=== PATIENT | male | born 1985 | race Two or more races ===

== ENCOUNTER 2024-11-21 00:05 | Emergency (ER) | payer SELFPAY ==
[2024-11-21] VITALS (35 sets, daily range): BP systolic 158–219; BP diastolic 113–147; PULSE 84–110; RESP 10–20; TEMP 36.4–36.8; O2SAT 99–100
--- NOTE | ~2024-11-21 | XR_ITS ---
EXAMINATION: XR chest 1V 11/21/2024 00:52 INDICATION: Uncontrolled hypertension PROCEDURE: AP view of the chest COMPARISON: No prior studies for comparison. FINDINGS: The lungs are clear. The cardiomediastinal silhouette is within normal limits. There are no pleural effusions. There is no pneumothorax suspected. IMPRESSION: 1: NO ACUTE CARDIOPULMONARY DISEASE. Reviewed, dictated and finalized at location O.
--- NOTE | ~2024-11-21 | CT_ITS ---
EXAMINATION: CTA BRAIN/CAROTID DATE: 11/21/2024 02:37 INDICATION: Olson's palsy. Elevated blood pressure. TECHNIQUE: Computed tomographic angiography (CTA) of the head and neck was performed with 100 mL Omnipaque-350 intravenous contrast. Multiplanar reconstructions and maximum intensity projection 3D-reconstructions of the carotid arteries and of the intracranial arteries were created by the technologist on a separate workstation. Automated exposure control and iterative reconstruction technique were employed.The dose-length product was 1241.23 mGy-cm. COMPARISON: None. FINDINGS: Intracranial arteries Vertebral arteries are codominant. There is no hemodynamically significant stenosis in the vertebral, basilar and internal carotid arteries. Both A1 and P1 segments are patent. There a patent anterior communicating artery as well as patent bilateral posterior communicating arteries, diminutive on the left. There are no aneurysms identified. Cerebral arterial arborization appears symmetric. Carotid arteries: The aortic arch and the great vessels arising from the arch are normal in caliber with no dissection or hemodynamically significant stenosis. There is no evident atherosclerotic plaque with 0% stenosis of the right and left carotid bulbs relative to normal distal artery lumen diameter (NASCET criteria). Mild emphysema in the upper lungs. Dependent predominant groundglass opacities likely related to expiratory phase of imaging as indicated by the concave margin of the posterior trachea. Mildly prominent likely reactive prevascular lymph node in the superior mediastinum which measures up to 9 mm in maximal short axis diameter. Cervical soft tissues are unremarkable. Likely positional mild reversal of the normal cervical lordosis. IMPRESSION: 1. No evident atherosclerotic plaque with 0% stenosis of the right and left carotid bulbs relative to normal distal artery lumen diameter (NASCET criteria). 2. Unremarkable cerebral CT angiogram with no hematoma significant stenosis, aneurysm or thrombosis. Reviewed, dictated and finalized at location A. IMPRESSION: 1. No evident atherosclerotic plaque with 0% stenosis of the right and left car otid bulbs relative to normal distal artery lumen diameter (NASCET criteria). 2. Unremarkable cerebral CT angiogram with no hematoma significant stenosis, an eurysm or thrombosis.
--- NOTE | ~2024-11-21 | CT_ITS ---
EXAMINATION: CT brain wo con DATE: 11/21/2024 00:48 INDICATION: Hypertension. Olson's palsy. TECHNIQUE: Computed tomography (CT) of the head was performed without intravenous contrast. Sagittal and coronal reconstructions were performed. The mA was adjusted according to patient size. Iterative reconstruction technique was employed. The dose-length product was 681.00 mGy-cm. COMPARISON: None FINDINGS: No acute intracranial hemorrhage, acute infarction or abnormal extra axial fluid collection. Ventricles are normal and symmetric. No mass/mass effect. The orbits and mastoid air cells are normal. Mucosal thickening the bilateral ethmoid, maxillary and right sphenoid sinuses. IMPRESSION: 1. Normal brain. No acute intracranial process. Reviewed, dictated and finalized at location A.
--- NOTE | 2024-11-21 00:11 | ED_ITS ---
HPI - Weakness General Chief complaint: Weakness <Case Bolton MD - Last Filed: 11/21/24 19:26> Stated complaint: R side weakness <Case Bolton MD - Last Filed: 11/21/24 19:26> Time Seen by Provider: 11/21/24 00:11 <Case Bolton MD - Last Filed: 11/21/24 19:26> Source: patient <Case Bolton MD - Last Filed: 11/21/24 19:26> Mode of arrival: ambulatory <Case Bolton MD - Last Filed: 11/21/24 19:26> Limitations: no limitations <Case Bolton MD - Last Filed: 11/21/24 19:26> History of Present Illness HPI Narrative: 38 YEARS OLD MALE CAME TO THE ED BY PRIVATE CAR COMPLAINING OF RIGHT FACE FACIAL WEAKNESS STARTED LAST NIGHT, HAS BEEN STEADY SINCE. HE DENIES ANY TINGLING NUMBNESS OR WEAKNESS ANYWHERE ELSE. PATIENT DENIES ANY FEVER, CHILLS, NAUSEA, VOMITING, HEADACHE, VISION DISORDER. PATIENT IS NOT ON ANY MEDICATIONS, HE SMOKES CIGARETTES, DRINK ALCOHOL, USES MARIJUANA DAILY PATIENT DOES NOT HAVE FAMILY PHYSICIAN <Case Bolton MD - Last Filed: 11/21/24 19:26> Related Data Allergies/Adverse reactions: Allergies Allergy/AdvReac Type Severity Reaction Status Date / Time No Known Allergies Allergy Verified 11/21/24 00:07 <Case Bolton MD - Last Filed: 11/21/24 19:26> Review of Systems 2 Review of Systems: All systems reviewed & are unremarkable except as noted in HPI and below <Case Bolton MD - Last Filed: 11/21/24 19:26> Exam 2 Narrative: GENERAL APPEARANCE: WELL-DEVELOPED, WELL-NOURISHED SKIN: NORMAL COLOR HEAD: NORMOCEPHALIC, NONTRAUMATIC EYES: CLEAR CONJUNCTIVA ENT: OROPHARYNX NORMAL, EARS NORMAL, NOSE NORMAL NECK: SUPPLE, NONTENDER CHEST AND RESPIRATORY: AIRWAY PATENT, NO RESPIRATORY DISTRESS, NO ACCESSORY MUSCLE USE HEART: REGULAR RATE/RHYTHM ABDOMEN: SOFT, NONTENDER, NO ORGANOMEGALY, QUIET BOWEL SOUNDS VASCULAR: NORMAL PERIPHERAL PULSES, NORMAL CAPILLARY REFILL. MUSCULOSKELETAL: NORMAL RANGE OF MOTION, NONTENDER BACK NEUROLOGIC: ALERT AND ORIENTED ?3, INABILITY TO WRINKLE RIGHT EYEBROW, DROOPING IV LEAD INABILITY TO CLOSE RIGHT EYE, INABILITY TO POOP OF CHEEK ON THE RIGHT SIDE, DROOPING CORNER OF MOUTH ON THE RIGHT SIDE <Case Bolton MD - Last Filed: 11/21/24 19:26> Course Vital Signs Vital signs: Vital Signs Pulse Oximetry 100 11/21/24 00:12 Temperature 36.4 C 11/21/24 03:43 Pulse Rate 87 11/21/24 03:43 Respiratory Rate 16 11/21/24 03:43 Blood Pressure 176/132 H 11/21/24 03:43 Pulse Oximetry 100 11/21/24 03:43 Oxygen Delivery Room Air 11/21/24 00:13 <Case Bolton MD - Last Filed: 11/21/24 19:26> Vital Signs Pulse Oximetry 100 11/21/24 00:12 Temperature 36.4 C 11/21/24 03:43 Pulse Rate 87 11/21/24 03:43 Respiratory Rate 16 11/21/24 03:43 Blood Pressure 176/132 H 11/21/24 03:43 Pulse Oximetry 100 11/21/24 03:43 Oxygen Delivery Room Air 11/21/24 00:13 <aRo Connors MD - Last Filed: 11/21/24 03:35> MDM - Weakness MDM Narrative Medical decision making narrative: PATIENT CAME WITH RIGHT FACIAL WEAKNESS STARTED YESTERDAY NIGHT VITAL SIGNS SHOWING BLOOD PRESSURE 204/145, HEART RATE 109 OTHERWISE WITHIN NORMAL LIMIT PHYSICAL EXAMINATION CONSISTENT WITH OLSON'S PALSY RIGHT FACE DIFFERENTIAL DIAGNOSIS: IDIOPATHIC, SECONDARY TO VIRAL INFECTION, BACTERIAL INFECTION, TRAUMA, AUTOIMMUNE DISEASE, DIABETES, HYPERTENSION MOST CASES OF OLSON'S PALSIES EXACT CAUSE OF OLSON'S PALSY REMAINS unKNOWN PATIENT CARE TURNED OVER TO DR. CONNORS AT SHIFT CHANGE, AWAITING LABS, IMAGING, DISPOSITION. PATIENT BEEN RESTING QUIETLY IN THE EMERGENCY ROOM WITHOUT ANY ISSUES OR PROBLEMS. CTA showed no acute abnormality Plan was to admit the patient in discussion with the patient the patient states she does not want to stay in the hospital he was recommended to the patient that he stay in the patient expressed understanding this and still did not want stay in the hospital patient was started on steroids will be started on lisinopril and will be referred to primary care. The patient was instructed return precautions and recommended that he stay in the hospital <Case Bolton MD - Last Filed: 11/21/24 19:26> PATIENT CAME WITH RIGHT FACIAL WEAKNESS STARTED YESTERDAY NIGHT VITAL SIGNS SHOWING BLOOD PRESSURE 204/145, HEART RATE 109 OTHERWISE WITHIN NORMAL LIMIT PHYSICAL EXAMINATION CONSISTENT WITH OLSON'S PALSY RIGHT FACE DIFFERENTIAL DIAGNOSIS: IDIOPATHIC, SECONDARY TO VIRAL INFECTION, BACTERIAL INFECTION, TRAUMA, AUTOIMMUNE DISEASE, DIABETES, HYPERTENSION MOST CASES OF OLSON'S PALSIES EXACT CAUSE OF OLSON'S PALSY REMAINS ON KNOWN PATIENT CARE TURNED OVER TO DR. CONNORS AT SHIFT CHANGE, AWAITING LABS, IMAGING, DISPOSITION. PATIENT BEEN RESTING QUIETLY IN THE EMERGENCY ROOM WITHOUT ANY ISSUES OR PROBLEMS. CTA showed no acute abnormality Plan was to admit the patient in discussion with the patient the patient states she does not want to stay in the hospital he was recommended to the patient that he stay in the patient expressed understanding this and still did not want stay in the hospital patient was started on steroids will be started on lisinopril and will be referred to primary care. The patient was instructed return precautions and recommended that he stay in the hospital <Rao Connors MD - Last Filed: 11/21/24 03:35> Differential Diagnosis Differential diagnosis: Likely other ( ABOVE) <Case Bolton MD - Last Filed: 11/21/24 19:26> Lab Data Attestation: I reviewed the patient's lab results. <Case Bolton MD - Last Filed: 11/21/24 19:26> Result diagrams: 11/21/24 00:35 11/21/24 00:35 <Case Bolton MD - Last Filed: 11/21/24 19:26> Labs: Lab Results 11/21/24 11/21/24 Range/Units 00:35 01:26 WBC 8.6 (4.5-10.0) K/mm3 RBC 4.61 (4.6-6.20) M/mm3 Hgb 15.5 (14.0-18.0) g/dL Hct 44.2 (42.0-52.0) % MCV 95.9 (80-100) fl MCH 33.6 (26-34) pg MCHC 35.1 (32-36) g/dl RDW 12.9 (11.5-14.5) % Plt Count 192 (150-375) k/mm3 MPV 10.1 (7.4-10.4) fl Immature Gran % (Auto) 0.3 (0-0.5) % Neut % (Auto) 58.4 (45.5-73.1) % Lymph % (Auto) 30.2 (18.3-44.2) % Greene % (Auto) 7.9 (2.6-8.5) % Eos % (Auto) 2.7 (0-4.4) % Baso % (Auto) 0.5 (0.2-1.2) % Lymph # (Auto) 2.59 (0.9-3.2) K/mm3 Greene # (Auto) 0.7 H (0.1-0.6) K/mm3 Eos # (Auto) 0.2 (0-0.3) K/mm3 Baso # (Auto) 0.0 (0.0-0.1) K/mm3 Abs Immat Gran (auto) 0.03 (0.00-0.031) K/mm3 Absolute Neuts (auto) 5.0 (1.3-6.7) K/mm3 Absolute Nucleated RBC 0.000 (0.0-0.012) K/mm3 Nucleated RBC % 0.0 (0.0-0.2) % PT 13.0 (11.1-14.7) Seconds INR 1.0 APTT 29.6 (22.3-36.8) Seconds Sodium 139 (137-145) mmol/L Potassium 3.8 (3.4-5.0) mmol/L Chloride 105 (98-107) mmol/L Carbon Dioxide 26 (22-30) mmol/L Anion Gap 8 (4-12) mmol/L BUN 13 (9-20) mg/dL Creatinine 1.19 (0.7-1.3) mg/dL Estim Creat Clear Calc 84 ml/min Estimated GFR > 60 (59 - ) Glucose 88 (65-110) mg/dL Hemoglobin A1c 5.3 (<5.7) % Calcium 9.1 (8.4-10.2) mg/dL Total Bilirubin 0.4 (0.2-1.3) mg/dL AST 39 (17-59) U/L ALT 43 (6-50) U/L Alkaline Phosphatase 118 (38-126) U/L Total Protein 8.1 (6.3-8.2) g/dL Albumin 4.8 (3.5-5.1) g/dL TSH 2.930 (0.465-4.680) uIU/mL Urine Color Yellow (Yellow) Urine Appearance Cloudy H (Clear) Urine pH 6.0 (5.0-9.0) Ur Specific [place] 1.005 (1.001-1.035) Urine Protein Negative (Negative) mg/dL Urine Glucose (UA) Negative (Negative) mg/dL Urine Ketones Negative (Negative) mg/dL Ur Blood (Man) Negative (Negative) Urine Nitrate Negative (Negative) Urine Bilirubin Negative (Negative) Urine Urobilinogen 0.2 (<2.0) mg/dL Leukocyte Esterase Rfl Trace H (Negative) DARRION/UL Urine RBC 0-2 (0-2) /hpf Urine WBC 0-5 (0-3) /hpf Ur Squamous Epith Cells None seen (Few) /hpf Urine Bacteria None seen /hpf Urine Casts 0-2 <Case Bolton MD - Last Filed: 11/21/24 19:26> Lab Results 11/21/24 11/21/24 Range/Units 00:35 01:26 WBC 8.6 (4.5-10.0) K/mm3 RBC 4.61 (4.6-6.20) M/mm3 Hgb 15.5 (14.0-18.0) g/dL Hct 44.2 (42.0-52.0) % MCV 95.9 (80-100) fl MCH 33.6 (26-34) pg MCHC 35.1 (32-36) g/dl RDW 12.9 (11.5-14.5) % Plt Count 192 (150-375) k/mm3 MPV 10.1 (7.4-10.4) fl Immature Gran % (Auto) 0.3 (0-0.5) % Neut % (Auto) 58.4 (45.5-73.1) % Lymph % (Auto) 30.2 (18.3-44.2) % Greene % (Auto) 7.9 (2.6-8.5) % Eos % (Auto) 2.7 (0-4.4) % Baso % (Auto) 0.5 (0.2-1.2) % Lymph # (Auto) 2.59 (0.9-3.2) K/mm3 Greene # (Auto) 0.7 H (0.1-0.6) K/mm3 Eos # (Auto) 0.2 (0-0.3) K/mm3 Baso # (Auto) 0.0 (0.0-0.1) K/mm3 Abs Immat Gran (auto) 0.03 (0.00-0.031) K/mm3 Absolute Neuts (auto) 5.0 (1.3-6.7) K/mm3 Absolute Nucleated RBC 0.000 (0.0-0.012) K/mm3 Nucleated RBC % 0.0 (0.0-0.2) % PT 13.0 (11.1-14.7) Seconds INR 1.0 APTT 29.6 (22.3-36.8) Seconds Sodium 139 (137-145) mmol/L Potassium 3.8 (3.4-5.0) mmol/L Chloride 105 (98-107) mmol/L Carbon Dioxide 26 (22-30) mmol/L Anion Gap 8 (4-12) mmol/L BUN 13 (9-20) mg/dL Creatinine 1.19 (0.7-1.3) mg/dL Estim Creat Clear Calc 84 ml/min Estimated GFR > 60 (59 - ) Glucose 88 (65-110) mg/dL Hemoglobin A1c 5.3 (<5.7) % Calcium 9.1 (8.4-10.2) mg/dL Total Bilirubin 0.4 (0.2-1.3) mg/dL AST 39 (17-59) U/L ALT 43 (6-50) U/L Alkaline Phosphatase 118 (38-126) U/L Total Protein 8.1 (6.3-8.2) g/dL Albumin 4.8 (3.5-5.1) g/dL TSH 2.930 (0.465-4.680) uIU/mL Urine Color Yellow (Yellow) Urine Appearance Cloudy H (Clear) Urine pH 6.0 (5.0-9.0) Ur Specific [place] 1.005 (1.001-1.035) Urine Protein Negative (Negative) mg/dL Urine Glucose (UA) Negative (Negative) mg/dL Urine Ketones Negative (Negative) mg/dL Ur Blood (Man) Negative (Negative) Urine Nitrate Negative (Negative) Urine Bilirubin Negative (Negative) Urine Urobilinogen 0.2 (<2.0) mg/dL Leukocyte Esterase Rfl Trace H (Negative) DARRION/UL Urine RBC 0-2 (0-2) /hpf Urine WBC 0-5 (0-3) /hpf Ur Squamous Epith Cells None seen (Few) /hpf Urine Bacteria None seen /hpf Urine Casts 0-2 <Rao Connors MD - Last Filed: 11/21/24 03:35> Imaging Data My impression: CHEST X-RAY SHOWED MILD CHF <Case Bolton MD - Last Filed: 11/21/24 19:26> ECG Data EKG #1: Attestation: I personally reviewed and interpreted this ECG as follows: <Case Bolton MD - Last Filed: 11/21/24 19:26> ECG completion date: 11/21/24 <Case Bolton MD - Last Filed: 11/21/24 19:26> Prior ECG tracings: not available for review <Case Bolton MD - Last Filed: 11/21/24 19:26> Interpretation: NORMAL SINUS RHYTHM AT 96 BEATS PER MINUTE, LEFT ATRIAL ENLARGEMENT, LEFT VENTRICULAR HYPERTROPHY AND ST T-WAVE ABNORMALITY, NO PREVIOUS EKG AVAILABLE FOR COMPARISON <Case Bolton MD - Last Filed: 11/21/24 19:26> Critical Care Time Critical Care Time Critical Care Time: No <Case Bolton MD - Last Filed: 11/21/24 19:26> Discharge Plan Discharge Clinical Impression: Facial paralysis/Greene palsy, Hypertension <Case Bolton MD - Last Filed: 11/21/24 19:26> Patient Disposition: Home <Case Bolton MD - Last Filed: 11/21/24 19:26> Condition: Stable <Case Bolton MD - Last Filed: 11/21/24 19:26> Instructions: Olson Palsy (ED), Hypertension (ED) <Case Bolton MD - Last Filed: 11/21/24 19:26> Additional Instructions: It was recommended that you stay in the hospital to get your blood pressure under better control. If you develop worsening symptoms please return to the emergency department if he develops severe headache shortness of breath chest pain or weakness on one side of your body. <Case Bolton MD - Last Filed: 11/21/24 19:26> Patient Language: Telugu <Case Bolton MD - Last Filed: 11/21/24 19:26> Prescriptions: New amlodipine [Norvasc] 10 mg tablet 10 mg PO DAILY Qty: 30 1RF prednisone 20 mg tablet 60 mg PO DAILY 7 Days Qty: 21 0RF <Case Bolton MD - Last Filed: 11/21/24 19:26> Follow-up/Referrals: Ramiro Mckinley MD [Physician, Family Practice] UNKNOWN,DOCTOR [Non-Staff] <Case Bolton MD - Last Filed: 11/21/24 19:26> Time of Disposition: 03:34 <Case Bolton MD - Last Filed: 11/21/24 19:26> 03:34 <Rao Connors MD - Last Filed: 11/21/24 03:35> Sign Out Sign Out Data: Patient Sign Out occurred on 11/21/24 at 02:28. Patient's care was discussed, and care was transferred from Case Bolton MD to Rao Connors MD. <Case Bolton MD - Last Filed: 11/21/24 19:26>
--- NOTE | 2024-11-21 00:26 | ECG_ITS ---
Test Date: 2024-11-21 01:00:21 Measurements Intervals [place] Rate: 96 P: 58 SD: 153 QRS: 23 QRSD: 86 T: 144 QT: 358 QTc: 452 Interpretive Statements SINUS RHYTHM LEFT ATRIAL ENLARGEMENT DELAYED PRECORDIAL R/S TRANSITION LEFT VENTRICULAR HYPERTROPHY AND ST-T CHANGE BASELINE ARTIFACT- I, III, AVR, AVL, AVF, V4-V6 BORDERLINE ECG No previous ECG available for comparison Electronically Signed On 11-21-2024 07:25:38 CDT by Oni Vicente D.O.
--- OUTSIDE RECORDS SUMMARY | 2024-11-21 00:36 | XMS_ITS | Clinical Summary ---
Author Organization [facility] Address [address] [place] [address] Care Team Providers Care Production Cell Leader Name Role Phone Unavailable Primary Care Provider Unavailabl e Source Comments [facility],non-owned Affiliates and Associated Physician Practices is amultiple site organization consisting of ambulatory clinics and hospital sitesin [place], [place], [place] and [place]. This disclosure is being madepursuant to the Care Everywhere program and may not contain all information available regarding this patient. 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[employer] Gender Identity Not on file Sexual Orientation Not on file Last Filed Vital Signs Vital Sign Reading Time Taken Comments Blood Pressure 125/86 07/31/2014 12:15 PM CDT Pulse 73 07/31/2014 11:10 AM CDT Temperature 36.1 C (96.9 F) 07/31/2014 8:09 AM CDT Respiratory Rate 19 07/31/2014 12:15 PM CDT Oxygen Saturation 100% 07/31/2014 11:10 AM CDT Inhaled Oxygen Concentration - - Weight - - Height - - Body Mass Index - - Plan of Treatment Health Maintenance Due Date Last Done Comments HIV SCREENING 12/07/2002 HEPATITIS C SCREENING 12/03/2005 HEPATITIS B VACCINE (1 of 3 - 19+ 3-dose series) 12/07/2006 HPV VACCINE (1 - 3-dose SCDM series) 12/07/2014 COVID-19 VACCINE (2023-2 5 season) 2023 DEPRESSION SCREENING 03/24/2024 DTAP/TDAP/TD VACCINES (2 - T d or Tdap) 07/31/2024 07/31/2014 INFLUENZA VACCINE (#1) 2024 ZOSTER VACCINE (1 of 2) 12/07/2037 HIB VACCINE Aged Out No longer eligi ble based on patient's age to complete this topic MENINGOCOCCAL (Group B) VACC INE SHARED DECISION-MAKING Aged Out No longer eligibl e based on patient's age to complete this topic MENINGOCOCCAL GROUPS A/C/Y/W VACCINE Aged Out No longer eligible b ased on patient's age to complete this topic PNEUMOCOCCAL VACCINE Aged Out No long er eligible based on patient's age to complete this topic
[2024-11-21 00:42] LABS: Hematocrit 44.2 % (42.0-52.0); Hemoglobin 15.5 g/dL (14.0-18.0); Immature Granulocyte Percent A 0.3 % (0-0.5); Lymphocytes Absolute Auto 2.59 K/mm3 (0.9-3.2); Mean Corpuscular HGB Conc 35.1 g/dl (32-36); Mean Corpuscular Hemoglobin 33.6 pg (26-34); Mean Corpuscular Volume 95.9 fl (80-100); Nucleated Red Blood Cells Absolute Auto 0.000 K/mm3 (0.0-0.012); Nucleated Red Blood Cells Perc 0.0 % (0.0-0.2); Platelet Count Result 192 k/mm3 (150-375); Red Blood Count 4.61 M/mm3 (4.6-6.20); White Blood Count 8.6 K/mm3 (4.5-10.0)
[2024-11-21 00:56] LABS: INR 1.0; Prothrombin Time 13.0 Seconds (11.1-14.7)
[2024-11-21 00:57] LABS: Partial Thromboplastin Time 29.6 Seconds (22.3-36.8)
[2024-11-21 01:01] LABS: Alanine Aminotransferase 43 U/L (6-50); Albumin Level 4.8 g/dL (3.5-5.1); Alkaline Phosphatase 118 U/L (38-126); Anion Gap 8 mmol/L (4-12); Aspartate Amino Transferase 39 U/L (17-59); Bilirubin,Total 0.4 mg/dL (0.2-1.3); Blood Urea Nitrogen 13 mg/dL (9-20); Calcium 9.1 mg/dL (8.4-10.2); Carbon Dioxide 26 mmol/L (22-30); Chloride 105 mmol/L (98-107); Estimated CRCL calculation 84 ml/min; Estimated Glomerular Filt Rate > 60; Glucose 88 mg/dL (65-110); Potassium 3.8 mmol/L (3.4-5.0); Sodium 139 mmol/L (137-145); Total Protein 8.1 g/dL (6.3-8.2)
[2024-11-21 01:33] LABS: Add Urine Microscopic? YES; Appearance Urine Cloudy (Clear); Glucose Urine UA Negative (Negative); Leukocyte Esterase Ur Trace LEU/UL (Negative); Nitrate Urine Negative (Negative); Non Pathogenic Casts 0-2; Specific Grav Ur 1.005 (1.001-1.035)
[2024-11-21 01:36] LABS: Hemoglobin A1C 5.3 % (<5.7)
[2024-11-21 01:56] LABS: Thyroid Stimulating Hormone 2.930 uIU/mL (0.465-4.680)
== END 2024-11-21 03:45 | disposition home or self-care (01) ==
PROVIDERS: Emergency Medicine; Emergency Provider Emergency Medicine
DX: G51.0 Bell's palsy (principal); I10 Essential (primary) hypertension; F17.210 Nicotine dependence, cigarettes, uncomplicated
CPT/HCPCS: 36415; 70450; 70496; 70498; 71045; 80053; 81001; 83036; 84443; 85025; 85610; 85730; 93005; 96374; 99284; Q9967